=== PATIENT | female | born 1965 | race Caucasian/White ===

== ENCOUNTER 2019-07-14 13:09 | Outpatient (CLI) | payer BC, SELFPAY ==
--- NOTE | ~2019-07-14 | MMUS_ITS ---
EXAMINATION: MM diagnostic ian LT w nelly, US breast LT limited HISTORY: Focal mammographic asymmetries reported in upper outer quadrant of left breast with associat ed calcifications TECHNIQUE: Additional 3-D tomosynthesis images of were performed and synthetic 2-D images were genera shelton. CAD analysis was submitted and interpreted. High resolution upper outer and lower-outer quadrant s left breast ultrasound was performed. COMPARISON: 05/15/2019 bilateral digital screening mammogram 11/15/2016 limited bilateral breast ultrasound 11/10/2016 bilateral diagnostic digital mammogram 06/19/2014 bilateral diagnostic digital mammogram FINDINGS: MAMMOGRAPHIC FINDINGS: No suspicious reproducible mass is evident, but masses may be excluded by heterogeneous dense breast stroma. There are scattered benign appearing microcalcifications. No architectural distortion, malignant calc ification, skin thickening or retraction is detected. ULTRASOUND: 6:00 3 cm from the nipple: There is an approximately 4.8 x 8.5 mm septated cyst with through transm ission and posterior enhancement. IMPRESSION: 1. Benign septated cyst of left breast at 6:00 3 cm from nipple; no mammographic evidence of malignan cy. 2. Routine mammographic screening is recommended BIRADS Category 2: Benign Reviewed, dictated and finalized at location A. IMPRESSION: 1. Benign septated cyst of left breast at 6:00 3 cm from nipple; no mammographi c evidence of malignancy. 2. Routine mammographic screening is recommended BIRADS Category 2: Benign
== END 2019-07-14 13:10 | disposition home or self-care (01) ==
LOC: ANHIMG 13:12
PROVIDERS: PCP Family Medicine; Visit Provider Family Medicine
DX: R92.8 Other abnormal and inconclusive findings on diagnostic imaging of breast (principal)
CPT/HCPCS: 76642; 77061; 77065; G0279

== ENCOUNTER 2019-08-25 14:57 | Outpatient (CLI) | payer BC, SELFPAY ==
--- NOTE | ~2019-08-25 | XR_ITS ---
EXAMINATION: XR chest 2V 08/25/2019 15:23 INDICATION: Cough. PROCEDURE: 2 view chest COMPARISON: 06/17/2015 FINDINGS: The lungs are clear. The cardiomediastinal silhouette is within normal limits. There are no pleural effusions. There is no pneumothorax suspected. IMPRESSION: 1: NO ACUTE CARDIOPULMONARY DISEASE. Reviewed, dictated and finalized at location A.
== END 2019-08-25 14:58 | disposition home or self-care (01) ==
LOC: ANHIMG 15:04
PROVIDERS: PCP Family Medicine; Visit Provider Physician Assistant
DX: R05 Cough (principal)
CPT/HCPCS: 71046

== ENCOUNTER 2020-01-30 15:40 | Emergency (ER) | payer OTHER, BC, SELFPAY ==
--- NOTE | ~2020-01-30 | XR_ITS ---
EXAMINATION: XR lumbar spine 2-3V DATE: 01/30/2020 16:18 INDICATION: Mid to low back pain. Fall 2 days ago. TECHNIQUE: 3 views of lumbar spine were obtained. COMPARISON: None. FINDINGS: There is 11 degrees dextroscoliosis of lumbar spine. Vertebral body heights are normal. The re is mildly decreased disc height at L5-S1. There are endplate osteophytes at most lumbar levels. Th e facet joints are unremarkable. IMPRESSION: 1. Mild lumbar spondylosis. 2. Lumbar dextroscoliosis. Reviewed, dictated and finalized at location B.
[2020-01-30 15:57] VITALS: BP 134/82; PULSE 86; RESP 20; TEMP 37.1; O2SAT 100
--- NOTE | 2020-01-30 15:59 | ED.BACK ---
HPI - Back Pain/Injury General Chief Complaint: Back Pain/Injury Stated Complaint: back pain Time Seen by Provider: 01/30/20 16:00 Source: patient Mode of arrival: ambulatory Limitations: no limitations History of Present Illness HPI Narrative: Patient is a 54-year-old female who presents with right lower back pain. She reports slip and fall at a gas station 3 days ago. She reports increased lower back pain since. She denies other injuries. Patient ambulatory with steady gait without assistance upon arrival. She denies numbness or tingling in extremities. She reports pain increases with movement. She denies taking kuhk-eys-[id number] pain medications at this time. She denies all other injuries. MD elicited complaint: back pain and fall Related Data Home Medications Medication Instructions Recorded Confirmed alprazolam 0.25 mg tablet 0.25 mg PO BID PRN 08/08/19 01/30/20 buspirone 15 mg tablet 15 mg PO BID 08/08/19 methylphenidate HCl 10 mg tablet 10 mg PO DAILY 08/08/19 01/30/20 trazodone 50 mg tablet 100 mg PO .qhs tablet 08/08/19 01/30/20 venlafaxine 150 mg 150 mg PO QAM 08/08/19 01/30/20 capsule,extended release 24 hr venlafaxine 75 mg capsule,extended 75 mg PO QPM 08/08/19 01/30/20 release 24 hr aripiprazole [Abilify] 2 mg PO DAILY 01/30/20 01/30/20 Allergies Allergy/AdvReac Type Severity Reaction Status Date / Time No Known Allergies Allergy Verified 01/30/20 16:03 Review of Systems Review of Systems: Narrative: CONSTITUTIONAL: Denies fever, chills, or sweats. EYES: Denies visual changes, redness, or discharge. ENT: Denies rhinorrhea, congestion, sore throat, or otalgia. CARDIOVASCULAR: Denies chest pain, palpitations, or edema. RESPIRATORY: Denies cough or dyspnea. GASTROINTESTINAL: Denies abdominal pain, nausea, vomiting, or diarrhea. GENITOURINARY: Denies dysuria or hematuria. SKIN: Denies rash or itching. MUSCULOSKELETAL: Reports back pain, denies joint pain or myalgia. NEUROLOGIC: Denies headache, numbness, dizziness, or weakness. PSYCHIATRIC: Denies anxiety or depression. [facility] Past Medical History Medical History Anxiety Depression Surgical History Surgical History No significant past surgical history Family History Family History Grandparent Family history of malignant neoplasm of breast Father Family history of heart disease in male family member before age 55, Onset Age: 74 Other Diabetes mellitus Family history of cardiovascular disease Social History Social History Smoking status: Former smoker Second hand tobacco smoke exposure: Yes Smoking end date: 04/23/00 Alcohol intake: current Exam Narrative: Exam Narrative: GENERAL: Well-appearing, well-nourished, and in no acute distress. HEAD: Normocephalic, atraumatic. EYES: No redness or drainage. ENT: Mucous membranes pink and moist. NECK: AROM. Supple. No lymphadenopathy. CHEST: No respiratory distress. Clear to auscultation. HEART: Regular rate and rhythm. No murmur appreciated. Normal peripheral pulses. MUSCULOSKELETAL: No bony tenderness. EXTREMITIES: Normal range of motion. No edema. SKIN: Warm, dry, no rash. NEURO: No focal deficits. Alert and oriented x3. Gait steady. PSYCH: Normal affect. No signs of depression or anxiety. Course Course Emergency Course: X-ray to be completed at this time, patient reports she would like x-ray to make sure nothing is off as she has never had 1 in past. Vital Signs Vital signs: Vital Signs Temperature 37.1 C 01/30/20 15:57 Pulse Rate 86 01/30/20 15:57 Respiratory Rate 20 01/30/20 15:57 Blood Pressure 134/82 01/30/20 15:57 Pulse Oximetry 100 01/30/20 15:57 Temperature 37.1 C 01/30/20 15:57 Pulse Rate 86 01/30/20
--- NOTE | 2020-01-30 16:13 | PC.NURSE ---
Patient ambulated to radiology with a steady gait.
== END 2020-01-30 16:37 | disposition home or self-care (01) ==
PROVIDERS: Emergency Provider Nurse Practitioner; PCP Family Medicine
DX: S39.012A Strain of muscle, fascia and tendon of lower back, initial encounter (principal); W01.0XXA Fall on same level from slipping, tripping and stumbling without subsequent striking against object, initial encounter; F41.9 Anxiety disorder, unspecified; F32.9 Major depressive disorder, single episode, unspecified; Z87.891 Personal history of nicotine dependence
CPT/HCPCS: 72100; 99213; G0463

== ENCOUNTER 2020-05-14 11:57 | Outpatient (CLI) | payer BC, SELFPAY ==
--- NOTE | ~2020-05-14 | XR_ITS ---
EXAMINATION: XR chest 2V DATE: 05/14/2020 13:15 INDICATION: Unspecified acute lower respiratory infection. TECHNIQUE: Frontal and lateral views of the chest were obtained. COMPARISON: Chest 2 views 08/25/19 FINDINGS: There is mild scarring at the lung apices. No pleural effusion or pneumothorax. The heart s ize is normal. IMPRESSION: 1. Mild scarring at the lung apices. Reviewed, dictated and finalized at location B. USINE RENTAL CLERK
== END 2020-05-14 11:58 ==
PROVIDERS: Visit Provider Physician Assistant
DX: J22 Unspecified acute lower respiratory infection (principal); R91.8 Other nonspecific abnormal finding of lung field
CPT/HCPCS: 71046

== ENCOUNTER → 2020-09-01 16:29 | Outpatient (CLI) | payer BC, SELFPAY ==
--- NOTE | ~2020-09-01 | XR_ITS ---
EXAMINATION: XR ankle RT min 3V EXAM DATE: 09/01/2020 16:49 INDICATION: S99.919A - Unspecified injury of unspecified ankle, initial encounter. TECHNIQUE: Right ankle frontal, lateral and oblique projections obtained and reviewed. There is no p rior study for comparison. FINDINGS: The right ankle mortise appears intact. There are no acute fractures or dislocations iden tified. There is no subcutaneous gas. The soft tissue is unremarkable. There are no radiopaque fo reign bodies. IMPRESSION: 1. Unremarkable right ankle exam. Reviewed, dictated and finalized at location A.
== END ==
PROVIDERS: PCP Family Medicine; Visit Provider Physician Assistant
DX: S99.919A Unspecified injury of unspecified ankle, initial encounter (principal)
CPT/HCPCS: 73610

== ENCOUNTER → 2021-01-20 15:31 | Outpatient (CLI) | payer OTHER, SELFPAY ==
--- NOTE | ~2021-01-20 | MM_ITS ---
EXAMINATION: MM screening ian BI w nelly HISTORY: Screening TECHNIQUE: Craniocaudal and mediolateral oblique 3-D tomosynthesis images were obtained and synthetic 2-D images were generated. CAD analysis was submitted and interpreted. COMPARISON: Comparison to multiple prior studies sequentially, with oldest reviewed study dated 11/18. BREAST PARENCHYMAL COMPOSITION: The breasts are heterogeneously dense, which may obscure small masses . FINDINGS: There is no evidence of suspicious mass, calcification, or architectural distortion to sugg est malignancy in either breast. There has been no suspicious interval change. IMPRESSION: 1. No mammographic evidence of malignancy. 2. Recommend routine screening mammography in one year. BI-RADS Category 1: Negative Reviewed, dictated and finalized at location A.
== END ==
PROVIDERS: PCP Family Medicine; Visit Provider Family Medicine
DX: Z12.31 Encounter for screening mammogram for malignant neoplasm of breast (principal)
CPT/HCPCS: 77063; 77067

== ENCOUNTER → 2021-10-12 11:19 | Outpatient (CLI) | payer BC, SELFPAY ==
--- NOTE | ~2021-10-12 | XR_ITS ---
EXAMINATION: XR chest 2V DATE: 10/12/2021 11:44 INDICATION: Cough, unspecified TECHNIQUE: PA and lateral views of the chest are obtained. COMPARISON: 05/14/2020 FINDINGS: The lungs are free of acute opacities. There is no pleural effusion or pneumothorax. The ca rdiomediastinal silhouette is normal. There is mild thoracic spondylosis. IMPRESSION: 1. No acute cardiopulmonary abnormality. Reviewed, dictated and finalized at location A.
== END ==
PROVIDERS: PCP Family Medicine; Visit Provider Physician Assistant
DX: R05.9 Cough, unspecified (principal); U09.9 Post COVID-19 condition, unspecified
CPT/HCPCS: 71046

== ENCOUNTER 2022-11-10 14:15 | Outpatient (CLI) | payer BC, SELFPAY ==
[2022-11-10 15:11] LABS: SARS-CoV-2 RNA PCR Positive (Negative)
== END 2022-11-10 14:16 | disposition home or self-care (01) ==
LOC: ANHLAB 14:18
PROVIDERS: PCP Family Medicine; Visit Provider Family Medicine
DX: U07.1 COVID-19 (principal); R39.9 Unspecified symptoms and signs involving the genitourinary system
CPT/HCPCS: 87635

== ENCOUNTER 2023-04-05 16:07 | Outpatient (CLI) | payer BC, SELFPAY ==
[2023-04-05 16:57] LABS: Influenza A QL RT-PCR Negative (Negative); Influenza B QL RT-PCR Negative (Negative); RSV RNA, RT-PCR Negative (Negative); SARS-CoV-2 RNA PCR Negative (Negative)
== END 2023-04-05 16:08 | disposition home or self-care (01) ==
LOC: ANHLAB 16:09
PROVIDERS: PCP Family Medicine; Visit Provider Physician Assistant
DX: Z20.822 Contact with and (suspected) exposure to COVID-19 (principal)
CPT/HCPCS: 87637

== ENCOUNTER 2023-04-29 15:20 | Emergency (ER) | payer BC, SELFPAY ==
--- NOTE | ~2023-04-29 | CT_ITS ---
EXAMINATION: CT abdomen pelvis w con INDICATION: Epigastric pain TECHNIQUE: Computed tomographic images of the abdomen and pelvis were obtained after the administrati on of 100 cc of Omnipaque 350 intravenous contrast. The dose-length product (DLP) was 387.14 mGy-cm. Automated exposure control and iterative reconstruction technique were employed. COMPARISON: None available FINDINGS: Minimal dependent atelectasis is present in the lung bases. The heart size is normal. There is a small sliding hiatal hernia. There is a 9 mm hypoattenuating lesion of the liver with periphera l nodular enhancement, likely hemangioma. Smaller hypoattenuating lesions of the liver also likely re flect hemangiomas. There is an 8 mm area of subcapsular hyperenhancement in the hepatic lobe, likely transient hepatic attenuation difference. The spleen, pancreas, gallbladder, and adrenal glands are n ormal. The kidneys are unremarkable. No pathologically enlarged abdominal or pelvic lymph nodes are i dentified. No free intraperitoneal gas or evidence of bowel obstruction. The appendix is normal. Ther e is moderate lumbar spondylosis at L5-S1. IMPRESSION: 1. No CT correlate for the patient's symptoms. Reviewed, dictated and finalized at location F. AL HYGIENIST
--- NOTE | ~2023-04-29 | CT_ITS ---
EXAMINATION: CT brain wo con INDICATION: Headache COMPARISON: None TECHNIQUE: Standard unenhanced head CT. The dose-length product (DLP) was 605.33 mGy-cm. The mA was a djusted according to patient size. Iterative reconstruction technique was employed. FINDINGS: No intracranial hemorrhage, acute infarction, or abnormal mass lesion. The ventricles are n ormal. No abnormal mass effect or midline shift. The turk-white matter differentiation is normal. The basal cisterns are patent. The orbits are normal. The paranasal sinuses, mastoids and calvarium are normal. IMPRESSION: 1. No acute intracranial abnormality. Reviewed, dictated and finalized at location F. ACK TRIMMER
[2023-04-29 15:23] VITALS: BP 144/77; PULSE 73; RESP 18; TEMP 36.6; O2SAT 100
--- NOTE | 2023-04-29 17:25 | ECG_ITS ---
Measurements Intervals Sherman Rate: 68 P: 44 OR: 175 QRS: 17 QRSD: 74 T: 39 QT: 385 QTc: 412 Interpretive Statements SINUS RHYTHM WITH SINUS ARRHYTHMIA RSR' IN V1 OR V2, PROBABLY NORMAL VARIANT BORDERLINE ST ABNORMALITY- ANTERIOR LEADS BASELINE ARTIFACT- II, III, AVF BORDERLINE ECG NO PREVIOUS ECG AVAILABLE FOR COMPARISON Electronically Signed On 04-29-2023 18:24:33 FINANCE BROKER by Panda Bills D.O.
[2023-04-29 17:40] LABS: Basophils Percent Auto 0.3 % (0.2-1.2); Eosinophils Absolute Auto 0.1 K/mm3 (0-0.3); Eosinophils Percent Auto 1.2 % (0-4.4); Hematocrit 43.4 % (37.0-47.0); Immature Granulocyte Absolute 0.04 K/mm3 (0.00-0.031); Immature Granulocyte Percent A 0.3 % (0-0.5); Lymphocytes Absolute Auto 3.01 K/mm3 (0.9-3.2); Lymphocytes Percent Auto 25.2 % (18.3-44.2); Mean Corpuscular HGB Conc 32.3 g/dl (32-36); Mean Corpuscular Hemoglobin 29.2 pg (26-34); Mean Corpuscular Volume 90.6 fl (80-100); Mean Platelet Volume 9.6 fl (7.4-10.4); Neutrophils Absolute Auto 7.8 K/mm3 (1.3-6.7); Platelet Count Result 303 k/mm3 (150-375); Red Blood Count 4.79 M/mm3 (4.2-5.4); Red Cell Distribution Width 13.6 % (11.5-14.5); White Blood Count 11.9 K/mm3 (4.5-10.0)
--- NOTE | 2023-04-29 17:43 | ED.GENADULT ---
HPI - General Adult General Chief complaint: Unspecified Stated complaint: high bp, headache, abd pain Time Seen by Provider: 04/29/23 16:58 Source: patient Mode of arrival: ambulatory Limitations: no limitations History of Present Illness HPI narrative: Patient is a 57-year-old female who presents to the ED with multiple complaints. Patient reports she has been ?sick? since March. She complains of decreased hearing in her right ear, intermittent headaches. Patient has seen her primary care doctor for this, has been seen at an Urgent Care, prescribed antibiotics for ear infection, told to take Sudafed. Patient denies any improvement. She does report some improvement of headaches with ibuprofen. Last took ibuprofen this am. She notes history of migraines, but states this feels different. Is rx'd sumatriptan, but has not tried this for headaches. Patient also reports having intermittent nausea, diarrhea, and abdominal cramping over the last month. Today at work, she developed more severe pain in her epigastric region. She began feeling flushed/clammy and EMS was called. Patient refused EMS transport and had her son bring her to the ED. Patient states abdominal pain has since resolved. She denies nausea, significant headache currently. Denies fevers, CP, SOB, vomiting, focal weakness/numbness. Related Data Home Medications Medication Instructions Recorded Confirmed alprazolam 0.25 mg tablet 0.25 mg PO BID PRN anxiety 08/08/19 04/18/23 methylphenidate HCl 10 mg tablet 10 mg PO DAILY 08/08/19 04/18/23 trazodone 50 mg tablet 100 mg PO .qhs 08/08/19 04/18/23 sertraline 150 mg capsule 150 mg PO DAILY 09/26/21 04/18/23 venlafaxine 150 mg tablet,extended 150 mg PO DAILY 10/13/22 04/18/23 release 24 hr Allergies Allergy/AdvReac Type Severity Reaction Status Date / Time No Known Allergies Allergy Verified 04/18/23 12:06 Review of Systems Review of Systems: CONSTITUTIONAL: Denies fever, chills, or sweats. ENT: See HPI CARDIOVASCULAR: Denies chest pain, palpitations, or edema. RESPIRATORY: Denies cough or dyspnea. GASTROINTESTINAL: See HPI NEUROLOGIC: See HPI All systems reviewed & are unremarkable except as noted in HPI and below PMFSH Past Medical History Medical History Anxiety Cough Depression Surgical History Surgical History No significant past surgical history Family History Family History Grandparent Family history of malignant neoplasm of breast Father Family history of heart disease in male family member before age 55, Onset Age: 74 Other Diabetes mellitus Family history of cardiovascular disease Social History Social History Smoking packs per day: 1 Smoking cigarettes per day: 20.0 Years smoked: 10 Smoking pack-years: 10.00 Smoking status: Former smoker Tobacco type: cigarettes Second hand tobacco smoke exposure: Yes Smoking end date: 04/23/00 Alcohol intake: current Drinks per week: 2 Substance use: current Substance use type: marijuana Other substance usage details: smokes marijuana 1-2 x monthly for relaxation Lack of Transportation: No Lack of Food: Never True Current Housing: I Have Housing Concerned About Future Housing: YES Difficulty Paying Gas/Electric Bills: YES Difficulty Paying for Meds: YES Currently Unemployed: No Education: Trade/Vocational Certificate Difficulty w/ Childcare or Family Care: No Living arrangements: with family Occupation/Education: occupation Additional occupation/education comments: [employer] CUR[employer] Gender identity (if verbalized by the patient): Female Spiritual care concerns: No Agree to blood products: Yes Exam Narrative: GENERAL: Well appearing, wel
[2023-04-29 17:44] LABS: Appearance Urine Cloudy (Clear); Bacteria Urine None Seen /hpf; Bilirubin Urine Negative (Negative); Blood Urine Negative (Negative); Color Urine Yellow (Yellow); Glucose Urine UA Negative (Negative); Ketones Urine Negative (Negative); Leukocyte Esterase Ur 1+ LEU/UL (Negative); Nitrate Urine Negative (Negative); Non Pathogenic Casts 0-2; Protein Urine Negative (Negative); RBC Urine 0-2 /hpf (0-2); Squamous Epithelial Cell Urine Moderate /hpf (Few); Urobilinogen Urine 0.2 mg/dL (<2.0)
[2023-04-29 17:49] LABS: Add Urine Microscopic? YES
[2023-04-29 17:51] LABS: Alanine Aminotransferase 87 U/L (6-35); Albumin Level 4.6 g/dL (3.5-5.1); Alkaline Phosphatase 98 U/L (38-126); Anion Gap 9 mmol/L (8-16); Aspartate Amino Transferase 180 U/L (14-36); Bilirubin,Total 0.5 mg/dL (0.2-1.3); Blood Urea Nitrogen 9 mg/dL (7-17); Calcium 9.6 mg/dL (8.4-10.2); Carbon Dioxide 28 mmol/L (22-30); Chloride 102 mmol/L (98-107); Estimated CRCL calculation 74 ml/min; Estimated Glomerular Filt Rate > 60; Glucose 95 mg/dL (65-110); Lipase 70 U/L (23-300); Potassium 3.8 mmol/L (3.4-5.0); Sodium 139 mmol/L (137-145)
[2023-04-29 18:00] VITALS: BP 139/81; PULSE 67; RESP 15; O2SAT 100
[2023-04-29 18:03] LABS: Troponin I < 0.012 ng/mL (0.000-0.034)
[2023-04-29] MEDS: BELLADONNA ALK/PHENOB ELIX 10 ML, MAG HYDROX/ALUMINUM HYD/SIMETH 30 ML, LIDOCAINE HCL 2... PO (18:17)
[2023-04-29 18:18] LABS: Influenza A QL RT-PCR Negative (Negative); Influenza B QL RT-PCR Negative (Negative); RSV RNA, RT-PCR Negative (Negative); SARS-CoV-2 RNA PCR Negative (Negative)
[2023-04-29 18:29] LABS: Ethanol < 10 mg/dL (<10)
[2023-04-29 20:32] VITALS: BP 138/79; PULSE 73; RESP 16; O2SAT 100
== END 2023-04-29 20:34 | disposition home or self-care (01) ==
PROVIDERS: Emergency Provider Physician Assistant; PCP Family Medicine
DX: H66.91 Otitis media, unspecified, right ear (principal); H91.8X1 Other specified hearing loss, right ear; R11.0 Nausea; R10.10 Upper abdominal pain, unspecified; R74.01 Elevation of levels of liver transaminase levels; Z20.822 Contact with and (suspected) exposure to COVID-19; F41.9 Anxiety disorder, unspecified; F32.A Depression, unspecified; Z87.891 Personal history of nicotine dependence; R94.31 Abnormal electrocardiogram [ECG] [EKG]
CPT/HCPCS: 36415; 70450; 74177; 80053; 80307; 81001; 83690; 84484; 85025; 87086; 87088; 87637; 93005; 99284; A9270; Q9967

== ENCOUNTER 2023-05-29 09:34 | Outpatient (CLI) | payer BC, SELFPAY ==
--- NOTE | ~2023-05-29 | US_ITS ---
EXAMINATION: US abdomen limited DATE: 05/29/2023 10:49 INDICATION: Epigastric abdominal pain TECHNIQUE: Multiple grayscale and Doppler ultrasound images of the abdomen were obtained. COMPARISON: CT, 04/29/2023 FINDINGS: Bowel gas obscures visualization of the pancreas. A 9 mm circumscribed hypoechoic mass in t he right hepatic lobe corresponds to the lesion seen on the comparison CT and is compatible with a he mangioma. The liver is otherwise normal with normal echogenicity and echotexture. No surface nodulari ty. Normal hepatopetal flow in the main portal vein. Stones and sludge are present in the gallbladder . No gallbladder wall thickening or pericholecystic fluid identified. The normal common bile duct haleigh sures 5 mm. Sonographic Mccloud sign is positive. IMPRESSION: 1. Stones and sludge of the gallbladder and positive sonographic Mccloud sign. Findings are equivocal for cholecystitis. Consider nuclear hepatobiliary scan. Reviewed, dictated and finalized at location L. MAKER IMPRESSION: 1. Stones and sludge of the gallbladder and positive sonographic Mccloud sign. F indings are equivocal for cholecystitis. Consider nuclear hepatobiliary scan.
== END 2023-05-29 09:35 | disposition home or self-care (01) ==
LOC: ANHIMG 09:39
PROVIDERS: PCP Family Medicine; Visit Provider Family Medicine
DX: R10.13 Epigastric pain (principal); K80.20 Calculus of gallbladder without cholecystitis without obstruction
CPT/HCPCS: 76705

== ENCOUNTER 2023-06-08 08:06 | Outpatient (CLI) | payer BC, SELFPAY ==
--- NOTE | ~2023-06-08 | NM_ITS ---
EXAMINATION: NM hepatobiliary wo pharm DATE: 06/08/2023 11:04 INDICATION: Cholelithiasis COMPARISON: Ultrasound dated 05/29/2023 TECHNIQUE: 4.8 mCi Tc-99m mebrofenin (Choletec) was administered intravenously. Scintigraphic images of the abdomen were obtained for one hour. At the 1 hour time point, the patient drank 8 oz Ensure, and imaging was continued for 60 minutes. Gallbladder ejection fraction was calculated by the technol ogelbert. FINDINGS: There is normal clearance of radiotracer from the blood pool. There is homogeneous tracer u ptake by the liver. Activity progresses to the bowel and gallbladder. The gallbladder ejection fract ion (GBEF) is 76%. Note that with this technique, normal GBEF >= 33%. IMPRESSION: 1. Normal hepatobiliary scan. Reviewed, dictated and finalized at location A. IOTHORACIC SURGEON
== END 2023-06-08 08:07 | disposition home or self-care (01) ==
LOC: ANHIMG 08:11
PROVIDERS: PCP Family Medicine; Visit Provider Family Medicine
DX: K80.20 Calculus of gallbladder without cholecystitis without obstruction (principal)
CPT/HCPCS: 78226; A9537

== ENCOUNTER 2023-06-14 08:11 | Outpatient (CLI) | payer BC, SELFPAY | END 2023-06-14 08:12 | disposition home or self-care (01) | LOC: ANHAUDASC 08:11 | PROVIDERS: PCP Family Medicine; Visit Provider Otolaryngology | DX: H93.11 Tinnitus, right ear (principal); H90.3 Sensorineural hearing loss, bilateral | CPT/HCPCS: 92557; 92567 ==

== ENCOUNTER 2023-10-15 13:44 | Outpatient (CLI) | payer BC, SELFPAY ==
[2023-10-15 15:18] LABS: Influenza A QL RT-PCR Negative (Negative); Influenza B QL RT-PCR Negative (Negative); RSV RNA, RT-PCR Negative (Negative); SARS-CoV-2 RNA PCR Negative (Negative)
== END 2023-10-15 13:45 | disposition home or self-care (01) ==
LOC: ANHLAB 13:46
PROVIDERS: PCP Family Medicine; Visit Provider Family Medicine
DX: J06.9 Acute upper respiratory infection, unspecified (principal); Z20.822 Contact with and (suspected) exposure to COVID-19
CPT/HCPCS: 87637

== ENCOUNTER 2023-12-19 08:14 | Outpatient (CLI) | payer BC, SELFPAY ==
[2023-12-19 08:59] LABS: Alanine Aminotransferase 22 U/L (6-35); Albumin Level 4.3 g/dL (3.5-5.1); Alkaline Phosphatase 62 U/L (38-126); Anion Gap 8 mmol/L (4-12); Aspartate Amino Transferase 29 U/L (14-36); Bilirubin,Total 0.4 mg/dL (0.2-1.3); Blood Urea Nitrogen 15 mg/dL (7-17); Calcium 8.8 mg/dL (8.4-10.2); Carbon Dioxide 31 mmol/L (22-30); Chloride 102 mmol/L (98-107); Cholesterol 264 mg/dL (0-200); Estimated Glomerular Filt Rate > 60; Glucose 99 mg/dL (65-110); HDL Direct 59 mg/dL; Potassium 3.8 mmol/L (3.4-5.0); Sodium 141 mmol/L (137-145); Triglycerides 118 mg/dL (<150)
[2023-12-19 09:10] LABS: LDL Cholesterol Direct 169 mg/dL
== END 2023-12-19 08:15 | disposition home or self-care (01) ==
LOC: ANHLAB 08:16
PROVIDERS: PCP Family Medicine; Visit Provider Family Medicine
DX: Z00.00 Encounter for general adult medical examination without abnormal findings (principal); R53.83 Other fatigue; R74.8 Abnormal levels of other serum enzymes; E78.2 Mixed hyperlipidemia
CPT/HCPCS: 36415; 80048; 80061; 80076; 84443

== ENCOUNTER 2024-02-06 02:31 | Day surgery (SDC) | payer BC, SELFPAY ==
[2024-01-21 09:22] VITALS: BMI 26.4
[2024-02-06 10:06] VITALS: BP 123/78; PULSE 92; RESP 16; TEMP 35.9; O2SAT 100; BMI 25.4
[2024-02-06] MEDS: LACTATED RINGERS 1,000 ML 150 ML IV CONT (10:29)
--- NOTE | 2024-02-06 10:47 | PM.HPGS ---
History of Present Illness History of Present Illness Consent: Risks, benefits, and alternatives have been discussed and questions answered. Patient agrees to proceed with procedure. Chief complaint: colon screen Narrative: Mercedes Carson is a 58 year old female with last colonoscopy about 10 years ago Review of Systems Review of Systems: All systems reviewed & are unremarkable except as noted in HPI and below PMFSH Past Medical History Medical History (Updated 02/06/24 @ 10:48 by Ernesto Marrufo MD) Anxiety Colon cancer screening Cough Depression Surgical History Surgical History No significant past surgical history Family History Family History Grandparent Family history of malignant neoplasm of breast Father Family history of heart disease in male family member before age 55, Onset Age: 74 Hypertension Heart disease Grandparent Alcoholism Diabetes mellitus Heart disease Grandparent Alcoholism Asthma Other Family history of cardiovascular disease Social History Social History Smoking packs per day: 1 Smoking cigarettes per day: 20.0 Years smoked: 10 Smoking pack-years: 10.00 Smoking status: Never smoker Tobacco type: cigarettes Second hand tobacco smoke exposure: Yes Smoking end date: 04/23/00 Alcohol intake: never Drinks per week: 2 Substance use: current Substance use type: does not use Other substance usage details: smokes marijuana 1-2 x monthly for relaxation Lack of Transportation: No Lack of Food: Never True Current Housing: I Have Housing Concerned About Future Housing: YES Difficulty Paying Gas/Electric Bills: YES Difficulty Paying for Meds: YES Currently Unemployed: No Education: Trade/Vocational Certificate Difficulty w/ Childcare or Family Care: No Living arrangements: with family Occupation/Education: occupation Additional occupation/education comments: [employer] CURRENTLY Gender identity (if verbalized by the patient): Female Spiritual care concerns: No Agree to blood products: Yes Meds Home Medications and Allergies Home Medications Medication Instructions Recorded Confirmed Type venlafaxine 150 mg tablet,extended 150 mg PO DAILY 10/13/22 02/06/24 History release 24 hr meloxicam 15 mg tablet 15 mg PO DAILY 01/17/24 02/06/24 History Allergies Allergy/AdvReac Type Severity Reaction Status Date / Time No Known Allergies Allergy Verified 02/06/24 10:13 Vital Signs Vital Signs - 24 hr 02/06/24 10:06 Temperature 96.7 F L Pulse Rate 92 Respiratory Rate 16 Blood Pressure 123/78 Pulse Oximetry 100 Oxygen Delivery Room Air Exam Const: General: comfortable and no acute distress HENMT: Face/Nose/Sinus: Normal nares present Eyes: General: appearance normal, both eyes and all related structures Neck: Neck: no JVD Resp: Auscultation: clear to auscultation bilaterally Cardio: Rate: regular rate Rhythm: regular rhythm GI: Inspection: non-distended GI Palp: Yes Soft to palpation Skin: General skin exam: normal color Neuro: General: gait normal Speech: normal speech Extrem: General: normal to inspection Psych: Mental Status: mental status grossly normal Assessment and Plan Assessment and plan (1) Colon cancer screening: Code(s): Z12.11 - Encounter for screening for malignant neoplasm of colon Status: Acute Assessment and Plan: colonoscopy
[2024-02-06 11:05] VITALS: BP 107/57; PULSE 81; RESP 19; O2SAT 96
[2024-02-06 11:15] VITALS: BP 130/74; PULSE 68; RESP 12; O2SAT 100
[2024-02-06 11:25] VITALS: BP 142/92; PULSE 77; RESP 18; O2SAT 100
--- NOTE | 2024-02-06 12:34 | SUR.PHASEII ---
1130 pt recovered up in chair and awaiting jeep driver.
== END 2024-02-06 12:02 | disposition home or self-care (01) ==
PROVIDERS: PCP Family Medicine; Referring Provider Family Medicine; Visit Provider Internal Medicine Gastroenterology
PROC: 0DJD8ZZ Inspection of Lower Intestinal Tract, Via Natural or Artificial Opening Endoscopic (ICD-10-PCS; CPT 45378; principal; 2024-02-06 11:30)
DX: Z12.11 Encounter for screening for malignant neoplasm of colon (principal); F41.9 Anxiety disorder, unspecified; F32.A Depression, unspecified; F12.90 Cannabis use, unspecified, uncomplicated; Z87.891 Personal history of nicotine dependence; Z80.3 Family history of malignant neoplasm of breast; Z82.49 Family history of ischemic heart disease and other diseases of the circulatory system
CPT/HCPCS: 45378; J2003; J2704; J7120